=== PATIENT | male | born 1950 | race African-American/Black ===

== ENCOUNTER 2025-01-14 12:41 | Emergency (ER) | payer OTHER, MEDICARE ==
[~2025-01-14] VITALS: Ht 180.3 cm; Wt 77.0 kg
[2025-01-14 12:45] VITALS: TEMP 36.8; O2SAT 96
[2025-01-14] MEDS: ACETAMINOPHEN 325MG TABLET PO ONE (13:47)
[2025-01-14] MEDS: METHOCARBAMOL 750MG TABLET PO SCH (13:47)
[2025-01-14] MEDS ORDERED: IBUP-2028 MT (15:29)
[2025-01-14] MEDS ORDERED: METH-653 MT (15:29)
[2025-01-14] MEDS ORDERED: LIDO-53 TP (15:29)
[2025-01-14] MEDS ORDERED: TOPUD PO (15:29)
[2025-01-14 15:44] VITALS: BP 118/78; PULSE 84; RESP 18; O2SAT 100
[2025-01-22] MEDS ORDERED: ISOS10TA95 PO (15:28)
[2025-01-22] MEDS ORDERED: SPIR25TA6 PO (15:29)
[2025-01-22] MEDS ORDERED: DAPA10TA PO (15:30)
[2025-01-22] MEDS ORDERED: AMLO10TA80 PO (15:31)
[2025-01-22] MEDS ORDERED: ALLO100T PO (15:32)
== END 2025-01-14 15:52 | disposition home or self-care (01) ==
LOC: ER 12:41
DX: S13.4XXA Sprain of ligaments of cervical spine, initial encounter (principal); J45.909 Unspecified asthma, uncomplicated; M48.02 Spinal stenosis, cervical region; M51.379 Other intervertebral disc degeneration, lumbosacral region without mention of lumbar back pain or lower extremity pain; I10 Essential (primary) hypertension; I67.82 Cerebral ischemia; Z96.642 Presence of left artificial hip joint; Z88.5 Allergy status to narcotic agent; Z85.07 Personal history of malignant neoplasm of pancreas; V89.2XXA Person injured in unspecified motor-vehicle accident, traffic, initial encounter; Y93.89 Activity, other specified; Y92.410 Unspecified street and highway as the place of occurrence of the external cause; Y99.8 Other external cause status
CPT/HCPCS: 70486; 71045; 72100; 72170; 99284